=== PATIENT | male | born 1975 | race Caucasian/White ===

== ENCOUNTER 2020-11-07 08:01 | Day surgery (SDC) | payer OTHER ==
[~2020-11-07] VITALS: Ht 175.3 cm; Wt 81.7 kg
[~2020-11-07 08:01] MED LIST: LR 1,000 ML IV ONE
[2020-11-07] MEDS ORDERED: MIDAZOLAM INJ 2MG/2ML VIAL (J2250 PER 1MG) As Ordered ONE (08:58)
[2020-11-07] MEDS ORDERED: fentaNYL 100 MCG/2 ML INJECTION (J3010) As Ordered ONE (08:59)
[2020-11-07] MEDS ORDERED: propofoL 200 MG/20 ML VIAL As Ordered ONE (09:03)
[2020-11-07] MEDS ORDERED: ROCURONIUM BROMIDE 50 MG/5 ML VIAL As Ordered ONE (09:03)
[2020-11-07] MEDS ORDERED: LIDOCAINE 2% 100MG/5ML SDV (FOR ANES.) As Ordered ONE (09:03)
[2020-11-07] MEDS ORDERED: dexameTHASONE 4 MG/ML 1ML VIAL (J1100 PER 1MG) As Ordered ONE (09:08)
[2020-11-07] MEDS ORDERED: ONDANSETRON 4MG/2ML VIAL As Ordered ONE ×2 (09:09→09:54)
[2020-11-07] MEDS ORDERED: LIDOCAINE W/EPINEPHRINE 1% 20ML VIAL As Ordered ONE (09:20)
[2020-11-07] MEDS ORDERED: METHYLENE BLUE 0.5% (5MG/ML) 10 ML AMP (PROVAYBLUE) As Ordered ONE (09:20)
[2020-11-07] MEDS ORDERED: OXYMETAZOLINE 0.05% NASAL SPRAY (AFRIN) As Ordered ONE ×3 (09:20→10:47)
[2020-11-07] MEDS ORDERED: COCAINE 4% 4ML NASAL SOLUTION BTL As Ordered ONE (09:21)
[2020-11-07] MEDS ORDERED: ACETAMINOPHEN 1000MG 100ML IV BTL (OFIRMEV) (J0131 PER 10MG) As Ordered ONE (09:53)
[2020-11-07] MEDS ORDERED: SUGAMMADEX SODIUM 500 MG/5 ML VIAL (BRIDION) As Ordered ONE (09:54)
[2020-11-07] MEDS ORDERED: HYDROmorphone HCL 2 MG/ML 1ML VIAL As Ordered ONE (10:54)
[2020-11-07] MEDS ORDERED: ONDANSETRON 4MG/2ML VIAL IV PRN (11:35)
[2020-11-07] MEDS ORDERED: ANEXSIA, NORCO 7.5MG/325MG TABLET(HYDROCODONE/APAP) PO PRN (11:35)
[2020-11-07] MEDS ORDERED: MORPHINE 10 MG/ML 1ML VIAL (J2270) IV PRN (11:35)
[2020-11-07] MEDS ORDERED: LR 1,000 ML IV SCH ×2 (11:35→11:40)
[2020-11-07] MEDS: oxyCODONE 5MG TAB PO PRN ×2 (12:02→12:50)
[2020-11-07 13:30] VITALS: BP 134/94
--- NOTE | 2020-11-07 14:38 | ROOPDOC ---
[facility] Report Of Operation Report of Operation DATE OF PROCEDURE: 11/07/20 PREPROCEDURE DIAGNOSES: Septal deviation, hypertrophic inferior turbinates. POSTPROCEDURE DIAGNOSES: Same. PROCEDURE PERFORMED: Septoplasty and bilateral inferior turbinoplasty. SURGEON: MD Norman USER EXPERIENCE DESIGNER: MD Norma ANESTHESIA: General. ESTIMATED BLOOD LOSS: Approximately 50 mL. COMPLICATIONS: None. REMARKS: . FINDINGS: SPECIMENS REMOVED: None PROCEDURE NOTE: . DESCRIPTION OF PROCEDURE: .Patient was seen in the office and was diagnosed with the above condition. A decision was made in consultation with the patient after explanation of risks and benefits to undergo the above-named procedure. The patient was admitted through the same-day surgery program, taken to the operating room where general anesthetic was administered via intravenous injection. Patient was then intubated endotracheally. The nose was decongested with 4 mL of 4% cocaine solution and nasal pledgets. Patient was draped in the usual sterile fashion. The pledgets were removed. The right septum was injected with 1% lidocaine and epinephrine. Using a Kiana blade a right hemitransfixion incision was created. Using the [place] elevator. The mucosa was elevated in the subperichondrial plane. This was extended posteriorly over the perpendicular plate of the ethmoid and inferiorly over the vomer. We the bony and cartilaginous septums with the [place] elevator and elevated on the opposite side. The deviated portion of the bone and cartilage posteriorly was removed. A strip of cartilage was removed inferiorly, taking care to leave more than a centimeter of tip support. We elevated on either side of the maxillary crest and the deviated portion was removed with a 4 mm osteotome. We reapproximated the anterior hemitransfixion incision with interrupted 4-0 chromic suture. The septum was quilted with interrupted 4-0 plain gut suture. The left inferior turbinate was injected with 1% lidocaine with epinephrine. A vertical incision was made with a Kiana blade. We elevated the mucosa off the turbinate. Using the 2.9 mm blade on the microdebrider the turbinate was reduced in the submucosal plane. We then lateralized this with the Jin elevator. The right inferior turbinate was injected with 1% lidocaine with epinephrine. We elevated the mucosa off the turbinate with the [place] elevator. The 2.9 mm microdebrider blade was used to reduce this along its length. This was then lateralized with a Jin elevator. Magnetic splints were placed on either side of the septum and secured anteriorly with a 3-0 nylon suture. Slim lines were placed against the inferior turbinates and removed in recovery. A mustache dressing was placed under the nose. The patient was then allowed to recover from anesthesia and was taken to the post anesthesia care area in stable condition. There were no complications during this procedure. Say Austin MD Nov 07, 2020 14:38
[2020-11-07] MEDS ORDERED: ONDANSETRON 4MG/2ML VIAL IV ONE (16:00)
== END 2020-11-07 13:47 | disposition home or self-care (01) ==
LOC: M SDC 08:01
PROVIDERS: ATTEND Otolaryngology
DX: J34.2 Deviated nasal septum (principal); J34.3 Hypertrophy of nasal turbinates
CPT/HCPCS: 30140; 30520; C9046; J0131; J1100; J1170; J2250; J2405; J3010; Q9968

== ENCOUNTER → 2022-04-12 | Outpatient (CLI) | payer OTHER ==
[~2022-04-12] MED LIST changes: -LR 1,000 ML IV ONE; +PROHANCE 279.3MG/ML 15ML VIAL As Ordered ONE; +PROHANCE 279.3MG/ML 5ML VIAL As Ordered ONE
== END ==
LOC: M RAD 15:13
PROVIDERS: ATTEND Physician Assistant
DX: M54.50 Low back pain, unspecified (principal); M96.1 Postlaminectomy syndrome, not elsewhere classified
CPT/HCPCS: 72158; A9576